=== PATIENT | female | born 1965 | race Caucasian/White ===

== ENCOUNTER 2016-08-14 09:25 | Emergency (ER) | payer BC ==
[2016-08-14 09:45] VITALS: BP 120/77
--- NOTE | 2016-08-14 10:21 | UC ---
UC General HPI - HPI Summary HPI Summary: compalint of tick in the right side of abdomne that she noticed this morning worried that there is one on her back as well unsure about how long it has been attached denies rash and fever - History of Current Complaint Chief Complaint: Sadia Stated Complaint: TICK BITE Time Seen by Provider: 08/14/16 10:15 Hx Obtained From: Patient - Allergy/Home Medications Allergies/Adverse Reactions: Allergies Allergy/AdvReac Type Severity Reaction Status Date / Time Gluten Meal Allergy Severe Abdominal Verified 08/14/16 09:45 Pain Fluconazole [From Diflucan] Allergy Unknown Verified 03/05/15 11:33 Reaction Details Sulfa Antibiotics Allergy Unknown Verified 03/05/15 11:33 Reaction Details Home Medications: Home Medications Clindamycin 1% TOPICAL(NF) [Cleocin-T 1% TOPICAL(NF)] 08/14/16 [History] PMH/Surg Hx/FS Hx/Imm Hx Previously Healthy: Yes Endocrine History Of: Denies: Diabetes, Thyroid Disease Cardiovascular History Of: Denies: Cardiac Disorders, Hypertension Respiratory History Of: Denies: COPD, Asthma GI/ History Of: Denies: Ulcer - Surgical History Surgical History: Yes Surgery Procedure, Year, and Place: appy, 3 knee surgeries right knee - Family History Known Family History: Negative: Cardiac Disease, Hypertension, Diabetes - Social History Occupation: Employed Full-time Lives: With Family Alcohol Use: None Substance Use Type: None Smoking Status (MU): Never Smoked Tobacco - Immunization History Most Recent Tetanus Shot: utd Review of Systems Constitutional: Negative Skin: Other - tick bite Eyes: Negative ENT: Negative Respiratory: Negative Cardiovascular: Negative Gastrointestinal: Negative Genitourinary: Negative Motor: Negative Neurovascular: Negative Musculoskeletal: Negative Neurological: Negative Psychological: Negative All Other Systems Reviewed And Are Negative: Yes Physical Exam Triage Information Reviewed: Yes Appearance: No Pain Distress, Well-Nourished, Thin Vital Signs: Initial Vital Signs Temp 98.4 F 08/14/16 09:35 Pulse 83 08/14/16 09:35 Resp 16 08/14/16 09:35 BP 120/77 08/14/16 09:35 Pulse Ox 100 08/14/16 09:35 Vital Signs Reviewed: Yes Eyes: Positive: Conjunctiva Clear ENT: Positive: Normal ENT inspection Neck: Positive: Supple Respiratory: Positive: Lungs clear, Normal breath sounds, No respiratory distress, No accessory muscle use Cardiovascular: Positive: RRR, No Murmur, Pulses Normal Abdomen Description: Positive: Nontender, Soft Bowel Sounds: Positive: Present Musculoskeletal: Positive: No Edema Neurological: Positive: Alert Psychological Exam: Normal Skin Exam: Other - right side of trunk - 2mm scabbed over area- no tick 4mm erythematous area surrounding scab Course/Dx - Differential Dx - Multi-Symptom Differential Diagnoses: Other - tick bite, cellulits Provider Diagnoses: tick bite Discharge - Discharge Plan Condition: Stable Disposition: HOME Prescriptions: DOXYcycline CAP(*) [DOXYcycline 100MG CAP(*)] 100 mg PO DAILY #2 cap Patient Education Materials: Tick Bite (ED) Referrals: Judy Fields MD [Primary Care Provider] - Additional Instructions: Please start antibiotic as directed Increase fluids and rest Take acetaminophen or ibuprofen for fever or pain Please review your discharge instructions. If your symptoms do not improve please call your primary care provider or return to urgent care.
== END 2016-08-14 10:45 | disposition home or self-care (01) ==
LOC: UCEAST 09:25
DX: S30.861A Insect bite (nonvenomous) of abdominal wall, initial encounter (principal); W57.XXXA Bitten or stung by nonvenomous insect and other nonvenomous arthropods, initial encounter; Y93.9 Activity, unspecified; Y92.9 Unspecified place or not applicable; Z88.1 Allergy status to other antibiotic agents; Z88.2 Allergy status to sulfonamides
CPT/HCPCS: 99212; G0463

== ENCOUNTER 2018-06-05 02:52 | Emergency (ER) | payer BC ==
[2018-06-05] MEDS ORDERED: NS 0.9% 1000 ML** 1,000 ML IV ONE ×2 (03:33→03:36)
[2018-06-05] MEDS ORDERED: Metoclopramide IV* 5 MG/ML 2 ML VIAL IV SLOW PU ONE (03:35)
[2018-06-05] MEDS ORDERED: Diphenoxylat/Atrop 2.5-0.025M* 1 TAB PO ONE (03:35)
--- NOTE | 2018-06-05 03:36 | ED ---
GI/ HPI - HPI Summary HPI Summary: This patient is a 53 year old F presenting to [facility] with a chief complaint of N/ V/D since 21:30 on 06/04/18. The patient rates the pain 4/10 in severity. Patient reports chills, LOC while having a vomiting and diarrhea episode. Patient denies fever. - History of Current Complaint Chief Complaint: EDAbdPain Time Seen by Provider: 06/05/18 03:22 Stated Complaint: ABD PAIN PER EMS Hx Obtained From: Patient Hx Last Menstrual Period: 07/25/16 Onset/Duration: Started Hours Ago Timing: Constant Severity: Moderate Current Severity: Moderate Pain Intensity: 4 Associated Signs and Symptoms: Positive: Nausea, Vomiting, Diarrhea, Chills, Other: - LOC. Negative: Fever - Allergy/Home Medications Allergies/Adverse Reactions: Allergies Allergy/AdvReac Type Severity Reaction Status Date / Time MS Gluten Meal [Gluten Meal] Allergy Severe Abdominal Verified 08/14/16 09:45 Pain MS Fluconazole Allergy Unknown Verified 03/05/15 11:33 [From Diflucan] Reaction Details MS Sulfa Antibiotics Allergy Unknown Verified 03/05/15 11:33 [Sulfa Antibiotics] Reaction Details PMH/Surg Hx/FS Hx/Imm Hx Endocrine/Hematology History: Denies: Hx Diabetes, Hx Thyroid Disease Cardiovascular History: Denies: Hx Hypertension Respiratory History: Denies: Hx Asthma, Hx Chronic Obstructive Pulmonary Disease (COPD) GI History: Denies: Hx Ulcer - Cancer History Cancer Type, Location and Year: hx shingles Hx Chemotherapy: No Hx Radiation Therapy: No - Surgical History Surgery Procedure, Year, and Place: appy, 3 knee surgeries right knee - Immunization History Date of Tetanus Vaccine: UTD Date of Influenza Vaccine: UTD Immunizations Up to Date: Yes Infectious Disease History: No Infectious Disease History: Denies: Hx Clostridium Difficile, Hx Hepatitis, Hx Human Immunodeficiency Virus (HIV), Hx of Known/Suspected MRSA, Hx Shingles, Hx Tuberculosis, Hx Known/ Suspected VRE, Hx Known/Suspected VRSA, History Other Infectious Disease, Traveled Outside the [place] in Last 30 Days - Family History Known Family History: Negative: Cardiac Disease, Hypertension, Diabetes - Social History Alcohol Use: None Substance Use Type: Reports: None Smoking Status (MU): Former Smoker Review of Systems Positive: Chills. Negative: Fever Positive: Vomiting, Diarrhea, Nausea Positive: Syncope - LOC during a vomiting and diarrhea episode All Other Systems Reviewed And Are Negative: Yes Physical Exam - Summary Physical Exam Summary: VITAL SIGNS: Reviewed. GENERAL: Patient is a well-developed and nourished FEMALE who is lying comfortable in the stretcher. Patient is not in any acute respiratory distress. HEAD AND FACE: No signs of trauma. No ecchymosis, hematomas or skull depressions. No sinus tenderness. EYES: PERRLA, EOMI x 2, No injected conjunctiva, no nystagmus. EARS: Hearing grossly intact. Ear canals and tympanic membranes are within normal limits. MOUTH: Oropharynx within normal limits. NECK: Supple, trachea is midline, no adenopathy, no JVD, no carotid bruit, no c- spine tenderness, neck with full ROM. CHEST: Symmetric, no tenderness at palpation LUNGS: Clear to auscultation bilaterally. No wheezing or crackles. CVS: Regular rate and rhythm, S1 and S2 present, no murmurs or gallops appreciated. ABDOMEN: Soft, non-tender. No signs of distention. No rebound no guarding, and no masses palpated. Hyperactive bowel sounds. EXTREMITIES: FROM in all major joints, no edema, no cyanosis or clubbing. NEURO: Alert and oriented x 3. No acute neurological deficits. Speech is normal and follows commands. SKIN: Dry and warm Triage Information Reviewed: Yes Vital Signs On Initial Exam: Initial Vitals Temp Pulse Resp BP Pulse Ox 98.1 F 81 20 108/66 100 06/05/18 03:01 06/05/18 03:01 06/05/18 03:01 06/05/18 03:01 06/05/18 03:01 Vital Signs Reviewed: Yes Diagnostics - Vital Signs Vital Signs Temp Pulse Resp BP Pulse Ox 06/05/18 03:01 98.1 F 81 20 108/66 100 - Laboratory Result Diagrams: 06/05/18 03:45 06/05/18 03:45 Lab Statement: Any lab studies that have been ordered have been reviewed, and results considered in the medical decision making process. - EKG 1 Summary of EKG Findings: 05:05. Unable to read due to extreme low voltage. 2 Cardiac Rate: NL - 83 BPM EKG Rhythm: Sinus Rhythm Summary of EKG Findings: 05:24. Normal axis. Normal interval. No ischemic changes. Re-Evaluation - Re-Evaluation 1 Re-Evaluation Time: 05:32 Change: Improved Comment: Pt is calmer. Said she is tired and would like to go to sleep. Symptoms likely secondary to dementia. Recommend increased PRN medication as needed. GIGU Course/Dx - Course Course Of Treatment: This patient is a 53 year old F presenting to [facility] with a chief complaint of N/V/D since 21:30 on 06/04/18. Her EKG was normal. Pt syncopal episodes likely secondary to vasovagal episodes that was triggered by vomiting. Patient will be D/C with a dx of gastoenteritis and vasovagal syncope. - Diagnoses Provider Diagnoses: Gastroenteritis, Syncope, vasovagal Discharge - Sign-Out/Discharge Documenting (check all that apply): Patient Departure - D/C home Patient Received Moderate/Deep Sedation with Procedure: No - Discharge Plan Condition: Stable Disposition: HOME Patient Education Materials: Syncope (ED), Gastroenteritis (ED) Referrals: Judy Fields MD [Primary Care Provider] - 2 Days Additional Instructions: RETURN TO THE EMERGENCY DEPARTMENT FOR CHANGING OR WORSENING SYMPTOMS. FOLLOW UP WITH PCP IN 1-2 DAYS. - Attestation Statements Document Initiated by Scribe: Yes Documenting Scribe: Zaire Das Provider For Whom Scribe is Documenting (Include Credential): Familia Wells MD Scribe Attestation: Zaire Sheikh, scribed for Familia Wells MD on 06/05/18 at 0614. Status of Scribe Document: Ready
[2018-06-05 03:56] LABS: ABS Basophils 0 10^3/ul (0-0.2); ABS Eosinophils 0 10^3/ul (0-0.6); ABS Lymphocytes 0.6 10^3/ul (1.0-4.8); ABS Monocytes 0.3 10^3/ul (0-0.8); ABS Neutrophils 8.5 10^3/ul (1.5-7.7); ABS Nucleated RBC 0 10^3/ul; Eosinophil % 0.3 %; Hematocrit 38 % (33-41); Hemoglobin 12.6 g/dL (12.0-16.0); Lymphocyte % 6.8 %; Mean Corpuscular HGB Conc 33 g/dL (31-36); Mean Corpuscular Hemoglobin 27 pg (27-31); Mean Corpuscular Volume 81 fL (80-97); Mean Platelet Volume 8.6 fL (7.4-10.4); Nucleated Red Blood Cells % 0; Platelet Count 219 10^3/uL (150-450); Red Blood Count 4.69 10^6 /uL (3.70-4.87); Red Cell Distribution Width 14 % (10.5-15); White Blood Count 9.5 10^3/uL (3.5-10.8)
[2018-06-05 04:00] LABS: INR 0.94 (0.77-1.02)
[2018-06-05 04:16] LABS: ALT 17 U/L (7-52); AST 27 U/L (13-39); Albumin 4.3 g/dL (3.2-5.2); Albumin/Globulin Ratio 1.4 (1-3); Alkaline Phosphatase 56 U/L (34-104); Amylase 75 U/L (29-103); Anion Gap 6 mmol/L (2-11); BUN/Creatinine Ratio 17.6 (8-20); Blood Urea Nitrogen 13 mg/dL (6-24); C Reactive Protein < 1.00 mg/L (<8.01); CO2 Carbon Dioxide 26 mmol/L (22-32); Calcium 9.2 mg/dL (8.6-10.3); Chloride 106 mmol/L (101-111); EGFR African American 99.7 (>60); EGFR Non-African American 82.4 (>60); Glucose 89 mg/dL (70-100); Potassium 3.6 mmol/L (3.5-5.0); Sodium 138 mmol/L (135-145); Total Protein 7.3 g/dL (6.4-8.9)
[2018-06-05 06:01] LABS: Magnesium 1.9 mg/dL (1.9-2.7)
[2018-06-05 06:44] VITALS: BP 103/52
== END 2018-06-05 06:43 | disposition home or self-care (01) ==
LOC: ED 02:52
DX: K52.9 Noninfective gastroenteritis and colitis, unspecified (principal); R55 Syncope and collapse; Z88.1 Allergy status to other antibiotic agents; Z88.2 Allergy status to sulfonamides; Z87.891 Personal history of nicotine dependence
CPT/HCPCS: 36415; 80053; 82150; 83690; 83735; 84484; 85025; 85610; 86140; 93005; 96361; 96374; 99283; A9270-GY; J2765

== ENCOUNTER 2022-09-27 07:51 | Observation (INO) ==
[~2022-09-27 07:51] MED LIST: Buffered Lidocaine 1% SYRIN 1 ml INTRADERM ONE; Lactated Ringers 1000 ml BAG 1,000 ML IV SCH
[2022-09-27] MEDS ORDERED: Heparin 5000 UNITS/ML 1 mL VIAL ONE (08:28)
[2022-09-27] MEDS ORDERED: Lidocaine 1% MPF 5 ML VIAL ONE (09:30)
[2022-09-27] MEDS ORDERED: Midazolam 2 mg/2 ml VIAL 1 mg/ml 2 ml VIAL (2 mg) ONE (09:43)
[2022-09-27] MEDS ORDERED: Propofol 10 MG/ML 20 ML BTL ONE ×2 (09:44→10:27)
[2022-09-27] MEDS ORDERED: Dexamethasone IV 4 MG/ML VIAL 1 ml VIAL ONE (09:44)
[2022-09-27] MEDS ORDERED: Ondansetron 4 mg VIAL 2 MG/ML 2 ml VIAL ONE (09:44)
[2022-09-27] MEDS ORDERED: Lidocaine 2% PF 5 ML VIAL ONE (09:44)
[2022-09-27] MEDS ORDERED: fentaNYL 100 mcg/2 ml 50 MCG/ML VIAL ONE ×2 (09:44→11:04)
[2022-09-27] MEDS ORDERED: Ondansetron 4 mg VIAL 2 MG/ML 2 ml VIAL IV PRN (11:01)
[2022-09-27] MEDS ORDERED: Naloxone 0.4 mg VIAL 0.4 mg/ml 1 ml VIAL IV PRN (11:01)
[2022-09-27] MEDS ORDERED: HYDROmorphone 1 MG/1 ML SYRINGE IV PRN (11:01)
[2022-09-27] MEDS: fentaNYL 100 mcg/2 ml 50 MCG/ML VIAL IV PRN ×2 (11:06→11:15)
[2022-09-27] MEDS ORDERED: HYDROmorphone 1 MG/1 ML SYRINGE ONE (11:25)
[2022-09-27 11:54] LABS: ABS Eosinophils 0.1 10^3/uL (0.0-0.5); ABS Lymphocytes 1.2 10^3/uL (1.0-4.8); ABS Monocytes 0.2 10^3/uL (0.0-0.9); ABS Neutrophils 2.7 10^3/uL (1.5-7.6); ABS Nucleated RBC 0.01 10^3/ul; Eosinophil % 2.5 %; Hematocrit 40.2 % (35-45); Hemoglobin 13.5 g/dL (11.5-14.3); Lymphocyte % 28.1 %; Mean Corpuscular Hemoglobin 29.7 pg (27-33); Mean Corpuscular Hgb Conc 33.7 g/dL (31-36); Mean Corpuscular Volume 88.3 fL (80-97); Mean Platelet Volume 8.2 fL (7.5-11.2); Nucleated Red Blood Cells % 0.2 /100 WBC (0.0-0.4); Platelet Count 222 10^3/uL (150-450); Red Blood Count 4.56 10^6/uL (3.63-4.92); Red Cell Distribution Width 13.3 % (12-17); White Blood Count 4.3 10^3/uL (3.8-11.8)
[2022-09-27] MEDS ORDERED: Cyclobenzaprine 5 mg TAB (NF) PO PRN (12:49)
[2022-09-27 15:46] LABS: ABS Lymphocytes 0.6 10^3/uL (1.0-4.8); ABS Monocytes 0.1 10^3/uL (0.0-0.9); ABS Nucleated RBC 0.01 10^3/ul; Eosinophil % 0.1 %; Hematocrit 39.4 % (35-45); Hemoglobin 13.4 g/dL (11.5-14.3); Lymphocyte % 6.5 %; Mean Corpuscular Hgb Conc 34.1 g/dL (31-36); Mean Corpuscular Volume 88.1 fL (80-97); Mean Platelet Volume 8.4 fL (7.5-11.2); Nucleated Red Blood Cells % 0.1 /100 WBC (0.0-0.4); Platelet Count 229 10^3/uL (150-450); Red Blood Count 4.48 10^6/uL (3.63-4.92); Red Cell Distribution Width 13.4 % (12-17); White Blood Count 8.8 10^3/uL (3.8-11.8)
[2022-09-27 16:30] LABS: Rapid COVID-19 Molecular Undetected (Undetected)
[2022-09-27] MEDS: Lactated Ringers 1000 ml BAG 1,000 ML IV SCH (17:07)
[2022-09-28] MEDS: Lactated Ringers 1000 ml BAG 1,000 ML IV SCH (00:54)
[2022-09-28 10:06] VITALS: BP 108/72
== END 2022-09-28 10:40 | disposition home or self-care (01) ==
LOC: OR 07:51 → SSU 17:03 → INTOOBSV 17:03
PROVIDERS: ADMIT Obstetrics & Gynecology; ATTEND Obstetrics & Gynecology